=== PATIENT | female | born 2000 | race Caucasian/White ===

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

== ENCOUNTER 2023-01-28 10:51 | Day surgery (SDC) | payer OTHER ==
[2023-01-28] MEDS ORDERED: FERRIC CARBOXYMALTOSE 750 MG in SODIUM CHLORIDE 250 ML IVPB ONE (11:30)
[2023-01-28 12:36] VITALS: BP 110/68; PULSE 86; RESP 18; TEMP 98.1
== END 2023-01-28 12:27 | disposition home or self-care (01) ==
LOC: FINFUSION 10:51 → FM/S 10:51 → FINFUSION 12:27
PROVIDERS: ATTEND Family Medicine
PROC: 3E033GC Introduction of Other Therapeutic Substance into Peripheral Vein, Percutaneous Approach (ICD-10-PCS; principal; 2023-01-28)
DX: D50.9 Iron deficiency anemia, unspecified (principal)
CPT/HCPCS: 96365; J1439

== ENCOUNTER 2023-02-04 10:34 | Day surgery (SDC) | payer OTHER ==
[2023-02-04 11:29] VITALS: RESP 18; TEMP 98.6
[2023-02-04] MEDS ORDERED: FERRIC CARBOXYMALTOSE 750 MG in SODIUM CHLORIDE 250 ML IVPB ONE (11:30)
[2023-02-04 12:42] VITALS: BP 104/54; PULSE 70
== END 2023-02-04 12:44 | disposition home or self-care (01) ==
LOC: FINFUSION 10:34 → FM/S 10:35 → FINFUSION 12:44
PROVIDERS: ATTEND Family Medicine
PROC: 3E033GC Introduction of Other Therapeutic Substance into Peripheral Vein, Percutaneous Approach (ICD-10-PCS; principal; 2023-02-04)
DX: D50.9 Iron deficiency anemia, unspecified (principal)
CPT/HCPCS: 96365; J1439